=== PATIENT | female | born 1980 | race Caucasian/White ===

== ENCOUNTER 2019-12-20 05:50 | Inpatient (IN) | payer OTHER, BC ==
[2019-12-18 11:24] LABS: BASOPHILS ABSOLUTE AUTO 0.06 K/mm3 (0.00-0.23); BASOPHILS PERCENT AUTO 1 % (0-2); EOSINOPHILS ABSOLUTE AUTO 0.29 K/mm3 (0.00-0.68); EOSINOPHILS PERCENT AUTO 3 % (0-6); Hematocrit 42.4 % (33.0-51.0); Hemoglobin 13.8 g/dL (11.5-16.0); IMMATURE GRAN ABSOLUTE AUTO 0.02 K/mm3 (0.00-0.10); IMMATURE GRAN PERCENT AUTO 0 % (0-1); LYMPHOCYTES ABSOLUTE AUTO 3.03 K/mm3 (0.84-5.20); LYMPHOCYTES PERCENT AUTO 30 % (21-46); MONOCYTES ABSOLUTE AUTO 0.63 K/mm3 (0.16-1.47); MONOCYTES PERCENT AUTO 6 % (4-13); Mean Corpuscular HGB 27.9 pg (26.0-34.0); Mean Corpuscular HGB Conc 32.5 g/dL (31.5-36.5); Mean Corpuscular Volume 86 fL (80-100); Mean Platelet Volume 11.7 fL (9.1-12.4); NEUTROPHILS ABSOLUTE AUTO 6.08 K/mm3 (1.96-9.15); NEUTROPHILS PERCENT AUTO 60 % (41-73); Platelet Count 287 K/mm3 (150-400); RDW Coefficient Variation 12.6 % (11.7-14.2); RDW Standard Deviation 39.1 fL (35.1-46.3); Red Blood Cell Count 4.94 M/mm3 (3.80-5.20); White Blood Cell Count 10.11 K/mm3 (4.00-11.30)
[2019-12-18 12:03] LABS: Anion Gap 4 mmol/L (6-16); Blood Urea Nitrogen 14 mg/dL (8-24); CO2, Blood 28 mmol/L (21-32); Calcium, Blood 8.8 mg/dL (8.5-10.1); Chloride, Blood 106 mmol/L (98-108); Creatinine, Blood 0.74 mg/dL (0.40-1.00); Glomerular Filtration Rate >60 (60-); Glucose, Blood 101 mg/dL (70-99); Potassium, Blood 3.8 mmol/L (3.5-5.5); Sodium, Blood 138 mmol/L (136-145)
[~2019-12-20] VITALS: Ht 165.1 cm; Wt 106.7 kg
[~2019-12-20 05:50] MED LIST: AMITRIPTYLINE PO; BENZ100A PO; Bacid1 EACH PO; CEFD300 PO; CETI10 PO; CIPR250 PO; CITA20; CYCL10 PO; Ceftriaxone2 G1; DICL75ER PO; DIPH50 PO; DULO60 PO; ESOM20; FLUC100 PO; HYDACE10B PO; IBUP600 PO; IBUP800 PO; LANS15EC; ONDA8ODT MM; OVRAL; Omeprazole20 M1 PO; Oxycodone HCl5 M1 PO; PRED10 PO; PROM25 PO; Percocet 5-3251 EACH PO; RANI150 PO; RXLEVESTKI PO; RXPROACE PO; SUCR1 PO; Sudogest30 MG PO; TEGA6; TOPI25 PO; Verotin-Gr Cap1 EACH PO; Zofran8 MG PO; [UNRECOGNIZED DRUG - OTHER]
[2019-12-20] MEDS ORDERED: OMEP20ER PO (06:27)
[2019-12-20] MEDS ORDERED: CENTRUM SILVER1 EAC2 PO (06:28)
[2019-12-20] MEDS ORDERED: ASCO500 PO (06:28)
[2019-12-20] MEDS ORDERED: Vitamin B Comple1 EA PO (06:29)
--- NOTE | 2019-12-20 07:09 | NUR ---
Ambulatory in Day Surgery History, Chart, Medications and Allergies reviewed before start of procedure.Patient confirms NPO status and agrees with scheduled surgery. Patient reports completing Chlorhexadine shower X2 prior to admission to hospital.Surgical site prepped with 2% Chlorhexidine cloth wipe. Lungs clear T/O to Auscultation.
[2019-12-20] MEDS ORDERED: LANS30EC PO (07:12)
[2019-12-20] MEDS ORDERED: BUPR100 PO (07:13)
[2019-12-21 05:29] LABS: BASOPHILS ABSOLUTE AUTO 0.06 K/mm3 (0.00-0.23); BASOPHILS PERCENT AUTO 0 % (0-2); EOSINOPHILS ABSOLUTE AUTO 0.22 K/mm3 (0.00-0.68); EOSINOPHILS PERCENT AUTO 2 % (0-6); Hemoglobin 12.6 g/dL (11.5-16.0); IMMATURE GRAN ABSOLUTE AUTO 0.06 K/mm3 (0.00-0.10); IMMATURE GRAN PERCENT AUTO 0 % (0-1); LYMPHOCYTES ABSOLUTE AUTO 3.29 K/mm3 (0.84-5.20); LYMPHOCYTES PERCENT AUTO 22 % (21-46); MONOCYTES ABSOLUTE AUTO 0.96 K/mm3 (0.16-1.47); MONOCYTES PERCENT AUTO 7 % (4-13); Mean Corpuscular HGB 28.3 pg (26.0-34.0); Mean Corpuscular HGB Conc 33.2 g/dL (31.5-36.5); Mean Corpuscular Volume 85 fL (80-100); Mean Platelet Volume 11.1 fL (9.1-12.4); NEUTROPHILS ABSOLUTE AUTO 10.17 K/mm3 (1.96-9.15); NEUTROPHILS PERCENT AUTO 69 % (41-73); Platelet Count 275 K/mm3 (150-400); RDW Coefficient Variation 12.6 % (11.7-14.2); Red Blood Cell Count 4.45 M/mm3 (3.80-5.20); White Blood Cell Count 14.76 K/mm3 (4.00-11.30)
--- NOTE | 2019-12-21 08:22 | NUR ---
PT LAYING IN BED, HASN'T TAKEN IN MUCH PO FLUIDS ALL NIGHT , IV STILL IN, STARTED IVF WITH ABX. WILL RUN IN AT 200 PER HOUR, ICE CHIPS AND WATER GIVEN, ENCOURGED TO DRINK. DISCUSSED AMBULATING Q2 HOURS, SHORT WALKS. WILL TRY IN 2 HOUR.FC OUT AT 0500, HASN'T VOIDED YET. PT TAKING OWN ESTROGEN. C/O SOME GAS PAIN, SHOULDER PAIN, DISCUSSED AMBUALTING WILL HELP.
--- NOTE | 2019-12-21 09:00 | NUR ---
AMBULATING IN HALLS, WAS ABLE TO VOID. PLANNING TO DC HOME THIS LATER MORNING.
[2019-12-21] MEDS ORDERED: Percocet 5-3251 EACH PO (09:47)
[2019-12-21] MEDS ORDERED: IBUP800 PO (09:48)
[2019-12-21] MEDS ORDERED: PROM25 PO (09:49)
--- NOTE | 2019-12-21 11:30 | NUR ---
ALL DC TEACHING DONE, ALL QUSTIONS ANSWERED. PT'S MOM HERE TO TAKE PT HOME, AMBULATED OUT.
== END 2019-12-21 11:25 | disposition home or self-care (01) | DRG 743 ==
LOC: ORSCMMR 05:50 → ORD 07:30 → ORSCMMR 11:33 → BC 11:33 → ORD 01-03 07:30
PROVIDERS: ADMIT Obstetrics & Gynecology
PROC: 0UT24ZZ Resection of Bilateral Ovaries, Percutaneous Endoscopic Approach (ICD-10-PCS; 2019-12-20)
PROC: 8E0W4CZ Robotic Assisted Procedure of Trunk Region, Percutaneous Endoscopic Approach (ICD-10-PCS; 2019-12-20)
PROC: 0UT94ZZ Resection of Uterus, Percutaneous Endoscopic Approach (ICD-10-PCS; principal; 2019-12-20 07:30)
DX: N92.0 Excessive and frequent menstruation with regular cycle (principal); N94.6 Dysmenorrhea, unspecified; R10.2 Pelvic and perineal pain; G89.29 Other chronic pain; N80.9 Endometriosis, unspecified; E66.9 Obesity, unspecified; Z68.39 Body mass index [BMI] 39.0-39.9, adult; K21.9 Gastro-esophageal reflux disease without esophagitis; F32.9 Major depressive disorder, single episode, unspecified
CPT/HCPCS: 36415; 80048; 85025; 86850; 86900; 86901; 88307; J0690; J1100; J1885; J2250; J2405; J2704; J3010; J7120; Q0163

== ENCOUNTER 2020-12-19 17:02 | Emergency (ER) | payer OTHER ==
[~2020-12-19] VITALS: Ht 170.2 cm; Wt 105.2 kg
[~2020-12-19 17:02] MED LIST changes: +ASCO500 PO; +BUPR100 PO; +CENTRUM SILVER1 EAC2 PO; +LANS30EC PO; +OMEP20ER PO; +Vitamin B Comple1 EA PO
[2020-12-19 17:51] LABS: BASOPHILS ABSOLUTE AUTO 0.09 K/mm3 (0.00-0.23); BASOPHILS PERCENT AUTO 1 % (0-2); EOSINOPHILS ABSOLUTE AUTO 0.12 K/mm3 (0.00-0.68); EOSINOPHILS PERCENT AUTO 1 % (0-6); Hematocrit 41.7 % (33.0-51.0); Hemoglobin 14.3 g/dL (11.5-16.0); IMMATURE GRAN ABSOLUTE AUTO 0.04 K/mm3 (0.00-0.10); IMMATURE GRAN PERCENT AUTO 0 % (0-1); LYMPHOCYTES ABSOLUTE AUTO 4.01 K/mm3 (0.84-5.20); LYMPHOCYTES PERCENT AUTO 36 % (21-46); MONOCYTES ABSOLUTE AUTO 0.78 K/mm3 (0.16-1.47); MONOCYTES PERCENT AUTO 7 % (4-13); Mean Corpuscular HGB Conc 34.3 g/dL (31.5-36.5); Mean Corpuscular Volume 82 fL (80-100); Mean Platelet Volume 11.3 fL (9.1-12.4); NEUTROPHILS ABSOLUTE AUTO 6.16 K/mm3 (1.96-9.15); NEUTROPHILS PERCENT AUTO 55 % (41-73); Platelet Count 343 K/mm3 (150-400); RDW Coefficient Variation 12.3 % (11.7-14.2); RDW Standard Deviation 36.9 fL (35.1-46.3)
[2020-12-19 18:13] LABS: Alanine Aminotransfer (ALT/SGP 36 U/L (12-78); Albumin, Blood 3.7 g/dL (3.4-5.0); Alk Phos 86 U/L (50-136); Anion Gap 3 mmol/L (6-16); Aspartate Aminotrans (AST/SGOT 15 U/L (12-37); Bilirubin, Total 0.3 mg/dL (0.1-1.0); Blood Urea Nitrogen 13 mg/dL (8-24); CO2, Blood 28 mmol/L (21-32); Calcium, Blood 9.3 mg/dL (8.5-10.1); Chloride, Blood 108 mmol/L (98-108); Creatinine, Blood 0.72 mg/dL (0.40-1.00); Globulin, Blood 3.8 g/dL (2.2-4.0); Glomerular Filtration Rate >60 (60-); Glucose, Blood 91 mg/dL (70-99); Potassium, Blood 3.9 mmol/L (3.5-5.5); Sodium, Blood 139 mmol/L (136-145); Total Protein, Blood 7.5 g/dL (6.4-8.2); Troponin I <0.015 ng/mL (0.000-0.040)
== END 2020-12-19 21:07 | disposition home or self-care (01) ==
LOC: ER 17:02
PROVIDERS: Physician Assistant
DX: R07.89 Other chest pain (principal); Z91.040 Latex allergy status; Z91.09 Other allergy status, other than to drugs and biological substances; Z88.2 Allergy status to sulfonamides; Z88.8 Allergy status to other drugs, medicaments and biological substances; Z79.899 Other long term (current) drug therapy
CPT/HCPCS: 36415; 71046; 80053; 84484; 85025; 93005; 93010; 99285-25

== ENCOUNTER → 2021-01-14 | Outpatient (CLI) | payer OTHER | END | disposition home or self-care (01) | LOC: LAB 12:31 → LAB SHORT 12:31 | DX: R10.13 Epigastric pain (principal) | CPT/HCPCS: 87338 ==

== ENCOUNTER → 2022-09-15 | Outpatient (CLI) | payer OTHER ==
[2022-09-15 01:46] LABS: BASOPHILS ABSOLUTE AUTO 0.05 K/mm3 (0.00-0.23); BASOPHILS PERCENT AUTO 0 % (0-2); EOSINOPHILS ABSOLUTE AUTO 0.18 K/mm3 (0.00-0.68); EOSINOPHILS PERCENT AUTO 1 % (0-6); Hematocrit 40.1 % (33.0-51.0); Hemoglobin 13.6 g/dL (11.5-16.0); IMMATURE GRAN ABSOLUTE AUTO 0.05 K/mm3 (0.00-0.10); IMMATURE GRAN PERCENT AUTO 0 % (0-1); LYMPHOCYTES ABSOLUTE AUTO 4.19 K/mm3 (0.84-5.20); LYMPHOCYTES PERCENT AUTO 31 % (21-46); MONOCYTES ABSOLUTE AUTO 0.85 K/mm3 (0.16-1.47); MONOCYTES PERCENT AUTO 6 % (4-13); Mean Corpuscular HGB 27.8 pg (26.0-34.0); Mean Corpuscular HGB Conc 33.9 g/dL (31.5-36.5); Mean Corpuscular Volume 82 fL (80-100); Mean Platelet Volume 11.4 fL (9.1-12.4); NEUTROPHILS ABSOLUTE AUTO 8.13 K/mm3 (1.96-9.15); NEUTROPHILS PERCENT AUTO 60 % (41-73); Platelet Count 308 K/mm3 (150-400); RDW Coefficient Variation 13.1 % (11.7-14.2); RDW Standard Deviation 38.8 fL (35.1-46.3); White Blood Cell Count 13.45 K/mm3 (4.00-11.30)
[2022-09-15 02:26] LABS: Albumin, Blood 3.8 g/dL (3.4-5.0); Albumin/Globulin Ratio 1.1 (0.8-1.8); Bilirubin, Total 0.5 mg/dL (0.1-1.0); Bun/Creatinine Ratio 23.8 (12.0-20.0); Calcium, Blood 8.9 mg/dL (8.5-10.1); Creatinine, Blood 0.72 mg/dL (0.40-1.00); Globulin, Blood 3.5 g/dL (2.2-4.0); Percent Saturation 17.7 % (15.0-50.0); Potassium, Blood 3.7 mmol/L (3.5-5.5); Thyroid Stimulating Hormone 3.46 uIU/mL (0.360-4.800); Total Protein, Blood 7.3 g/dL (6.4-8.2)
== END | disposition home or self-care (01) ==
LOC: LAB SHORT 01:38
PROVIDERS: Nurse Practitioner Family
DX: R51.9 Headache, unspecified (principal); R53.83 Other fatigue
CPT/HCPCS: 80053; 82728; 83540; 83550; 84443; 85025

== ENCOUNTER 2023-06-20 22:36 | Emergency (ER) | payer BC ==
[~2023-06-20] VITALS: Ht 165.1 cm; Wt 70.3 kg
[2023-06-21] MEDS ORDERED: ONDA4ODT MM (00:31)
[2023-06-21 00:40] VITALS: BP 146/70
== END 2023-06-21 00:39 | disposition home or self-care (01) ==
LOC: ER 22:36
DX: J11.1 Influenza due to unidentified influenza virus with other respiratory manifestations (principal); Z88.2 Allergy status to sulfonamides; Z91.09 Other allergy status, other than to drugs and biological substances; Z88.8 Allergy status to other drugs, medicaments and biological substances; Z79.899 Other long term (current) drug therapy
CPT/HCPCS: 96361; 96374; 99284-25; J1885; J7030

== ENCOUNTER → 2023-06-22 | Outpatient (CLI) | payer BC ==
[~2023-06-22] MED LIST changes: +ONDA4ODT MM
[2023-06-22 11:22] LABS: BASOPHILS ABSOLUTE AUTO 0.04 K/mm3 (0.00-0.23); BASOPHILS PERCENT AUTO 0 % (0-2); EOSINOPHILS PERCENT AUTO 0 % (0-6); IMMATURE GRAN ABSOLUTE AUTO 0.03 K/mm3 (0.00-0.10); IMMATURE GRAN PERCENT AUTO 0 % (0-1); LYMPHOCYTES ABSOLUTE AUTO 1.46 K/mm3 (0.84-5.20); LYMPHOCYTES PERCENT AUTO 16 % (21-46); MONOCYTES ABSOLUTE AUTO 0.55 K/mm3 (0.16-1.47); MONOCYTES PERCENT AUTO 6 % (4-13); Mean Corpuscular HGB 27.7 pg (26.0-34.0); Mean Corpuscular HGB Conc 33.3 g/dL (31.5-36.5); Mean Corpuscular Volume 83 fL (80-100); Mean Platelet Volume 11.4 fL (9.1-12.4); NEUTROPHILS ABSOLUTE AUTO 7.16 K/mm3 (1.96-9.15); NEUTROPHILS PERCENT AUTO 78 % (41-73); Platelet Count 221 K/mm3 (150-400); RDW Coefficient Variation 12.5 % (11.7-14.2); RDW Standard Deviation 37.7 fL (35.1-46.3); Red Blood Cell Count 5.06 M/mm3 (3.80-5.20); White Blood Cell Count 9.24 K/mm3 (4.00-11.30)
[2023-06-22 11:35] LABS: Albumin, Blood 3.4 g/dL (3.4-5.0); Albumin/Globulin Ratio 0.9 (0.8-1.8); Bilirubin, Total 0.9 mg/dL (0.1-1.0); Bun/Creatinine Ratio 15.1 (12.0-20.0); Calcium, Blood 8.9 mg/dL (8.5-10.1); Creatinine, Blood 1.06 mg/dL (0.40-1.00); Globulin, Blood 3.9 g/dL (2.2-4.0); Potassium, Blood 3.5 mmol/L (3.5-5.5); Total Protein, Blood 7.3 g/dL (6.4-8.2)
== END | disposition home or self-care (01) ==
LOC: LAB SHORT 11:16 → LAB 11:16
PROVIDERS: Physician Assistant
DX: R11.2 Nausea with vomiting, unspecified (principal)
CPT/HCPCS: 80053; 85025

== ENCOUNTER 2024-03-08 18:24 | Inpatient (IN) | payer BC ==
[~2024-03-08] VITALS: Ht 172.7 cm; Wt 108.2 kg
[2024-03-08] MEDS ORDERED: DiphenhydrAMINE HCl 50 MG/ML 1ML Vial IV ONE ×3 (18:50→21:30)
[2024-03-08] MEDS ORDERED: Morphine Sulfate 4 MG/1 ML Injection IV ONE (18:50)
[2024-03-08] MEDS ORDERED: Ondansetron HCl 2 MG / ML 2ML Vial IV ONE (18:55)
[2024-03-08] MEDS ORDERED: NS 1,000 ML IV SCH (18:55)
[2024-03-08 18:59] LABS: Hematocrit 41.5 % (33.0-51.0); Hemoglobin 14.3 g/dL (11.5-16.0); Mean Corpuscular HGB 28.1 pg (26.0-34.0); Mean Corpuscular HGB Conc 34.5 g/dL (31.5-36.5); Mean Corpuscular Volume 82 fL (80-100); Mean Platelet Volume 11.4 fL (9.1-12.4); Platelet Count 364 K/mm3 (150-400); RDW Coefficient Variation 12.5 % (11.7-14.2); RDW Standard Deviation 37.6 fL (35.1-46.3); Red Blood Cell Count 5.09 M/mm3 (3.80-5.20); White Blood Cell Count 13.68 K/mm3 (4.00-11.30)
[2024-03-08] MEDS ORDERED: Famotidine 10 MG/ML 2ML Vial IV ONE (19:00)
[2024-03-08] MEDS ORDERED: EpiNEPhrine 1 MG/1 ML 1ML Vial IM ONE ×2 (19:00→20:15)
[2024-03-08] MEDS ORDERED: EPINEPhrine HCl 1 MG/ML 1ML Amp IM ONE ×2 (19:00→20:15)
[2024-03-08] MEDS ORDERED: MethylPREDNISolone Sod Succ 125 MG Vial IV ONE (19:00)
[2024-03-08 19:12] LABS: Alanine Aminotransfer (ALT/SGP 46 U/L (12-78); Albumin, Blood 3.8 g/dL (3.4-5.0); Albumin/Globulin Ratio 1.1 (0.8-1.8); Alk Phos 95 U/L (50-136); Anion Gap 11 mmol/L (3-11); Aspartate Aminotrans (AST/SGOT 50 U/L (12-37); Bilirubin, Total 0.5 mg/dL (0.1-1.0); Blood Urea Nitrogen 14 mg/dL (8-24); Bun/Creatinine Ratio 18.6 (12.0-20.0); CO2, Blood 27 mmol/L (21-32); Calcium, Blood 9.5 mg/dL (8.5-10.1); Chloride, Blood 106 mmol/L (98-108); Creatinine, Blood 0.75 mg/dL (0.40-1.00); Globulin, Blood 3.5 g/dL (2.2-4.0); Glomerular Filtration Rate 103 (60-); Glucose, Blood 98 mg/dL (70-99); Potassium, Blood 3.6 mmol/L (3.5-5.5); Sodium, Blood 140 mmol/L (136-145); Total Protein, Blood 7.3 g/dL (6.4-8.2)
[2024-03-08 19:52] LABS: BASOPHILS PERCENT MAN 0 % (0-2); EOSINOPHILS PERCENT MAN 0 % (0-6); LYMPHOCYTES % ATYPICAL MANUAL 1 % (0-0); LYMPHOCYTES ABSOLUTE MAN 7.66 K/mm3 (0.84-5.20); LYMPHOCYTES PERCENT MAN 55 % (21-46); MONOCYTES ABSOLUTE MAN 0.68 K/mm3 (0.16-1.47); MONOCYTES PERCENT MAN 5 % (4-13); NEUTROPHILS ABSOLUTE MAN 5.33 K/mm3 (1.96-9.15); SEG NEUTROPHILS PERCENT MAN 39 % (41-73); TOTAL CELLS COUNTED 100
[2024-03-08 20:48] LABS: D-Dimer, Quantitative 4.45 mg/L FEU (0.00-0.52)
[2024-03-08] MEDS ORDERED: DiphenhydrAMINE HCl 50 MG/ML 1ML Vial ONE (21:24)
[2024-03-08] MEDS ORDERED: FentaNYL Citrate 50 MCG/ML 2 ML Injection IV ONE (23:20)
[2024-03-08] MEDS ORDERED: FentaNYL Citrate 50 MCG/ML 2 ML Injection IV PRN (23:45)
[2024-03-09] MEDS ORDERED: Ondansetron HCl 2 MG / ML 2ML Vial IV PRN (00:05)
[2024-03-09] MEDS ORDERED: FLU VACC TS2024-25(6MOS UP)/PF 45 MCG/0.5 ML SYRINGE IM SCH (00:05)
[2024-03-09] MEDS ORDERED: NS 1,000 ML IV SCH (00:05)
[2024-03-09 00:16] LABS: CHOL/HDL RATIO 3.6; Cholesterol 265 mg/dL (50-200); HDL Cholesterol 73 mg/dL (>39); LDL/HDL RATIO 2.1; Low Density Lipoprotein Chol 151 mg/dL (0-110); Triglycerides 207 mg/dL (30-160); Very Low Density Lipoprot Chol 41 mg/dL (6-32)
[2024-03-09 00:23] LABS: International Normalized Ratio 0.95; Prothrombin Time Results 10.2 Sec (9.7-11.5)
[2024-03-09 05:50] LABS: BASOPHILS ABSOLUTE AUTO 0.01 K/mm3 (0.00-0.23); BASOPHILS PERCENT AUTO 0 % (0-2); EOSINOPHILS PERCENT AUTO 0 % (0-6); Hematocrit 42.5 % (33.0-51.0); Hemoglobin 14.2 g/dL (11.5-16.0); IMMATURE GRAN ABSOLUTE AUTO 0.05 K/mm3 (0.00-0.10); IMMATURE GRAN PERCENT AUTO 0 % (0-1); LYMPHOCYTES ABSOLUTE AUTO 0.97 K/mm3 (0.84-5.20); LYMPHOCYTES PERCENT AUTO 8 % (21-46); MONOCYTES ABSOLUTE AUTO 0.09 K/mm3 (0.16-1.47); MONOCYTES PERCENT AUTO 1 % (4-13); Mean Corpuscular HGB 27.8 pg (26.0-34.0); Mean Corpuscular HGB Conc 33.4 g/dL (31.5-36.5); Mean Corpuscular Volume 83 fL (80-100); Mean Platelet Volume 11.8 fL (9.1-12.4); NEUTROPHILS ABSOLUTE AUTO 10.92 K/mm3 (1.96-9.15); NEUTROPHILS PERCENT AUTO 91 % (41-73); Platelet Count 328 K/mm3 (150-400); RDW Coefficient Variation 12.8 % (11.7-14.2); RDW Standard Deviation 38.5 fL (35.1-46.3); Red Blood Cell Count 5.11 M/mm3 (3.80-5.20); White Blood Cell Count 12.04 K/mm3 (4.00-11.30)
[2024-03-09 06:15] LABS: Albumin, Blood 3.5 g/dL (3.4-5.0); Bilirubin, Total 0.4 mg/dL (0.1-1.0); Bun/Creatinine Ratio 23.4 (12.0-20.0); Calcium, Blood 8.6 mg/dL (8.5-10.1); Creatinine, Blood 0.69 mg/dL (0.40-1.00); Globulin, Blood 3.5 g/dL (2.2-4.0); Potassium, Blood 4.1 mmol/L (3.5-5.5)
[2024-03-09] MEDS ORDERED: Enoxaparin 40 MG/0.4 ML SYR SC SCH (09:00)
[2024-03-09] MEDS ORDERED: Ketorolac Tromethamine 15mg Vial IV PRN (10:45)
[2024-03-09] MEDS ORDERED: Morphine Sulfate 10 MG/ML 1MLSYR IV PRN (10:50)
[2024-03-09] MEDS ORDERED: DiphenhydrAMINE HCl 50 MG/ML 1ML Vial IV PRN ×2 (12:00→22:25)
[2024-03-09] MEDS ORDERED: ESCI10 PO (12:51)
[2024-03-09] MEDS ORDERED: FAMO40 PO (12:51)
[2024-03-09 12:53] VITALS: BP 127/77
[2024-03-09] MEDS ORDERED: Lactated Ringer's 1,000 ML IV SCH (15:00)
[2024-03-09] MEDS ORDERED: Famotidine 10 MG/ML 2ML Vial IV ONE (15:25)
[2024-03-09] MEDS ORDERED: MethylPREDNISolone Sod Succ 125 MG Vial IV ONE (16:35)
[2024-03-09] MEDS ORDERED: LORazepam 2 MG/ML 1ML Injection IV PRN (16:35)
[2024-03-09 17:16] VITALS: BP 130/78
--- NOTE | 2024-03-09 19:42 | NUR ---
HIFT SUMMARY- PT ADMITTED THROUGH THE ER AFTER HAVING AN ANIPHYLACTIC REACTION TO SOMETHING (PRESUMED SHE ATE SOMETHING). HIVES WERE RESOLVED WELL ITCHING UPON ARRIVAL TO MED FLOOR. PAIN APPEARED WELL MANAGED. CALLED DR CHRISTIANSON ABOUT THE PT SHE BAGAN ITCHING AGAIN LATER IN THE SHIFT. PT DESCRIBED A BURNING IN HER THROAT WHEN SHE RECIEVED IV BENADRYL EARLIER. DR CHRISTIANSON DC'D BENADRYL AND ORDERED A OT DOSE OF PEPCID. THIS HAD NO EFFECT ON THE PT ITCHING. CALLED DR CHRISTIANSON IT HAD NO EFFECT AND HE ORDERED A OT DOSE OF 60MG IV STEROIDS. PT STATED AFTER THAT HER ITCHING WAS BETTER, BUT NOT GONE. MEDICATED FOR PAIN WITH 4MG IV MORPHINE WITH GOOD EFFECT. PT HAS PRN ATIVAN IF NEEDED TO HELP WITH THE PAIN. IV TORADOL SEEMED TO HELP A LITTLE TO TAKE THE SHARPNESS OUT OF THE PAIN (PER PT REPORT). BEDSIDE REPORT COMPLETED ITH NIGHT RN NO S&S OF DISTRESS NOTED AT THE TIME OF REPORT. PT REPORTS PAIN WELL MANAGED AT THE TIME OF REPORT. ONCOMING NIGHT RN HAD THIS RN ASK THE PT IF SHE APPROVED OF HER BEING THE PT RN THEY WENT TO SCHOOL TOGETHER; PT AGREED AND WAS WILLING TO HAVE ANGELITO BURT HER RN FOR THE NIGHT.
[2024-03-09 19:49] VITALS: BP 133/82
[2024-03-09] MEDS ORDERED: HYDROmorphone HCl/Pf 1MG SYR IV PRN (21:05)
[2024-03-09] MEDS ORDERED: HYDROmorphone HCl/Pf 1MG SYR IV ONE (21:05)
[2024-03-10 03:41] VITALS: BP 112/55
[2024-03-10 05:30] LABS: CHOL/HDL RATIO 3.3; Cholesterol 239 mg/dL (50-200); HDL Cholesterol 73 mg/dL (>39); Low Density Lipoprotein Chol 145 mg/dL (0-110); Triglycerides 107 mg/dL (30-160); Very Low Density Lipoprot Chol 21 mg/dL (6-32)
[2024-03-10] MEDS ORDERED: Pantoprazole Sodium 40 MG Injection IV SCH (06:00)
--- NOTE | 2024-03-10 07:45 | NUR ---
SHIFT SUMMARY PT A&Ox4 AND PLEASANT. PT WITH UPPER GASTRIC PAIN D/T ACUTE PANCREATITIS. PT REPORTED LITTLE PAIN RELIEF AT START OF SHIFT. HOSPITALIST CALLED AND NEW ORDERS GIVEN. PT MEDICATED PER EMAR WITH GOOD EFFECT. PT ALSO REPORTED INTERMITENT ITCHING SINCE ARRIVING. BENADRYL GIVEN PER EMAR. PT ON 2L OF OXYGEN D/T DESATING IN ED, BASLINE IS RA. CONTINIOUS BIOX PLACED. NO EVENTS ON TELE. PT DENIED N/V/D. NPO AT THIS TIME. VSS. BED IN LOWEST POSITION AND CALL LIGHT IN REACH.
[2024-03-10 08:03] VITALS: BP 146/84
[2024-03-10] MEDS ORDERED: Citalopram Hydrobromide 20 MG Tab PO SCH (09:00)
[2024-03-10] MEDS ORDERED: Loratadine 10 MG Tab PO SCH (10:00)
[2024-03-10 15:01] VITALS: BP 128/74
--- NOTE | 2024-03-10 17:21 | NUR ---
SHIFT NOTE: PT A/OX4 ABLE TO MAKE NEEDS KNOWN. DIET IS TO BE ADVANCED TOLERATED, PT TRIED ICE CHIPS WITH INCREASED PAIN, RETURNED TO NPO. SHE HAS BEEN MEDICATED FOR PAIN PER EMAR. WILL CONTINUE TO MONITOR AND REPORT TO ONCOMING RN
[2024-03-10 19:44] VITALS: BP 135/80
[2024-03-11] MEDS ORDERED: NS 1,000 ML IV SCH (00:55)
[2024-03-11 03:06] VITALS: BP 121/69
[2024-03-11 07:32] VITALS: BP 134/80
--- NOTE | 2024-03-11 07:39 | NUR ---
SHIFT SUMMARY NOC. PT ADMIT FOR ACUTE PANCREATITIS. PT UNABLE TO TOLERATE ICE CHIPS WITHOUT INCREASE IN PAIN. URINE IS DARK. NEW ORDERS RECEIVED FOR BAG OF NS X1. PT MEDICATED FOR PAIN WITH DILAUDID 0.5MG, O2 PLACED VIA N/C 0.5L FOR DESAT. PT'S TELEMETRY IS ACTIVE IN SINUS BRADYCARDIA, NO REPORTED EVENTS. A/OX4, SBA FOR CORD MANAGEMENT TO INDEPENDENT. PT MEDICATED WITH BENADRYL X1 FOR ITCHING. BED IN LOWEST POSITION, CALL LIGHT IN REACH.
[2024-03-11 15:26] VITALS: BP 135/79
--- NOTE | 2024-03-11 19:29 | NUR ---
END OF SHIFT SUMMARY: A&Ox4. PLEASANT AND COOPERATIVE WITH CARE. CALLS APPROPRIATELY AND IS ABLE TO ADVOCATE NEEDS EFFECTIVELY. AMBULATES INDEPENDENTLY WITHIN THE ROOM. CONTINENT OF BOWEL AND BLADDER. REPORTS URINE IS DARK. NS x1. ADVANCE DIET TOLERATED TO CLEAR LIQUIDS, TOLERATING SO FAR. MEDICATED T/O SHIFT WITH PRN TORADOL AND PRN HYDROMORPHONE 0.5MG. TELE SINUS. BED IN LOWEST POSITION. CALL LIGHT WITHIN REACH. ALL NEEDS MET. REPORT TO ONCOMING NURSE.
[2024-03-11 19:54] VITALS: BP 138/86
[2024-03-12 04:29] VITALS: BP 138/82
[2024-03-12] MEDS ORDERED: Acetamin/Butalbital/Caffeine Tab PO PRN (04:40)
[2024-03-12 05:01] LABS: Bun/Creatinine Ratio 20.6 (12.0-20.0); Calcium, Blood 8.4 mg/dL (8.5-10.1); Creatinine, Blood 0.78 mg/dL (0.40-1.00); Potassium, Blood 3.9 mmol/L (3.5-5.5)
--- NOTE | 2024-03-12 06:50 | NUR ---
SHIFT SUMMARY PT IS A&OX4, PLEASANT AND APPRECIATIVE OF CARES. VSS ON RA. PER TELEMETRY PT IS SR-SB 57-69 BPM. C/O PAIN IN HER ABD AND A WINKLER, MEDICATED WITH PRN 0.5 MG IV DILAUDID AND PO FIORICET. NO C/O NAUSEA THIS SHIFT. PT IS UP AD SHIRIN INDEPENDENT IN ROOM/BR. NO BM THIS SHIFT. TOLERATING CLEAR LIQUIDS. BED IN LOWEST POSITION, CALL LIGHT WITHIN REACH.
[2024-03-12 07:18] VITALS: BP 140/89
[2024-03-12] MEDS ORDERED: NS 1,000 ML IV SCH (10:00)
[2024-03-12 10:09] LABS: Albumin/Globulin Ratio 1.1 (0.8-1.8); Bilirubin, Direct 0.3 mg/dL (0.0-0.3); Bilirubin, Indirect 0.9 mg/dL (0.1-0.7); Bilirubin, Total 1.2 mg/dL (0.1-1.0); Globulin, Blood 2.7 g/dL (2.2-4.0); Total Protein, Blood 5.7 g/dL (6.4-8.2)
[2024-03-12 15:29] VITALS: BP 154/95
[2024-03-12] MEDS ORDERED: Acetaminophen 325 MG TABLET PO PRN (17:15)
[2024-03-12] MEDS ORDERED: OxyCODONE HCL 5 MG TAB PO PRN (17:15)
--- NOTE | 2024-03-12 19:51 | NUR ---
SHIFT SUMMARY- PT SPOKE TO DR CHRISTIANSON ABOUT HER URINE BEING VERY CONCENTRATED AND FEELING DEHYDRATED, IVF RESUMED. PT HAS HAD A TERRIBLE HEADACHE THAT IS ONLY WORSENED BY THE DILAUDID. SPOKE TO DR CHRISTIANSON AND RECIEVED ORDER FOR TYLENOL FOR HEADACHE AND OXY FOR THE PAIN. PT DIET WAS ADVANCED TO A LOW FAT DIET, PT SEEMS TO TOLLERATE PO INTAKE WELL IF IT IS NOT SUGARY, AND SHE IS AWARE SHE NEEDS TO AVOID FAT. SHE TOLLERATED A FULL CUP OF BROTH EARLIER TODAY WITH NO ISSUE, SHE HAD A CORNBREAD MUFFIN WITH NO BUTTER, PRIOR TO THE OXY. SHE STATES HER PAIN IS UNCHANGED 30 MINUTES LATER, DENIES NAUSEA, SHE STATES THE HEADACHE IS BETTER 4/10. PT IN BED, CALL LIGHT IN REACH NO S&S OF DISTRESS NOTED.
[2024-03-12 20:29] VITALS: BP 128/87
[2024-03-13 02:07] VITALS: BP 133/86
--- NOTE | 2024-03-13 05:09 | NUR ---
SHIFT SUMMARY PT IS A&OX4, PLEASANT AND APPRECIATIVE OF CARES. VSS ON RA, BOARD WINDER ON. PER TELEMETRY PT IS SR @ 64 BPM. C/O PAIN IN HER ABD AND A WINKLER, MEDICATED WITH PRN 10 MG OXYCODONE. PT IS ANXIOUS AND TEARFUL AT BEDTIME, SHE WANTS TO FEEL BETTER AND GET TO GO HOME. MEDICATED HER WITH 0.5 MG IV ATIVAN, PT SAID SHE GOT SOME GOOD, MUCH NEEDED SLEEP. NO C/O NAUSEA THIS SHIFT. TOLERATING A REG., LOW FAT DIET. PT IS UP AD SHIRIN INDEPENDENT IN ROOM/BR. NO BM THIS SHIFT. BED IN LOWEST POSITION, CALL LIGHT WITHIN REACH.
[2024-03-13 07:41] VITALS: BP 132/84
[2024-03-13 19:35] VITALS: BP 142/79
--- NOTE | 2024-03-13 20:34 | NUR ---
SHIFT SUMMARY- PT PAIN SEEMED TO BE WELL MANAGED EARLIER IN THE SHIFT, BUT SHE BEGAN REQUIRING THE PO PAIN MEDS MORE CLOSE TOGETHER THAN THEY WERE ALLOWED. THE 10MG DOSE WAS TOO MUCH (PER THE PT) SO SHE ONLY WANTED THE 5MG, HOWEVER 5MG WORE OFF IN 3.5 HOURS, SHE WAS MEDICATED AND THREE HOURS LATER WAS REQUIRING MORE. MEDICATED WITH TYLENOL, IT DID NOT HELP. NIGHT RN WILL GIVE OXY AND SOME FENTANYL IF NEEDED. PT HAD AN MRCP COMPLETED THIS EVENING. PT IN BED VISIBLY UNCOMFORTABLE AT THE TIME OF REPORT. SHE MAT NEED TO CUT BACK ON HER PO INTAKE TO GET HER PAIN UNDER CONTROL. MRCP RESULTS ARE IN MD HAS NOT DISCUSSED THEM WITH THE PT.
[2024-03-14 02:42] VITALS: BP 121/76
[2024-03-14 05:51] LABS: Hematocrit 37.8 % (33.0-51.0); Mean Corpuscular HGB 27.8 pg (26.0-34.0); Mean Corpuscular HGB Conc 34.4 g/dL (31.5-36.5); Mean Corpuscular Volume 81 fL (80-100); Platelet Count 271 K/mm3 (150-400); RDW Coefficient Variation 12.5 % (11.7-14.2); Red Blood Cell Count 4.68 M/mm3 (3.80-5.20); White Blood Cell Count 8.18 K/mm3 (4.00-11.30)
[2024-03-14 06:10] LABS: Bilirubin, Total 1.2 mg/dL (0.1-1.0); Calcium, Blood 8.9 mg/dL (8.5-10.1); Creatinine, Blood 0.72 mg/dL (0.40-1.00); Globulin, Blood 2.9 g/dL (2.2-4.0); Potassium, Blood 3.5 mmol/L (3.5-5.5); Total Protein, Blood 5.9 g/dL (6.4-8.2)
[2024-03-14 07:20] VITALS: BP 135/85
--- NOTE | 2024-03-14 07:54 | NUR ---
SHIFT SUMMARY PT IS A&OX4, PLEASANT AND APPRECIATIVE OF CARES. VSS ON RA, JEWELRY RACKER ON. PER TELEMETRY PT IS SB @ 58 BPM. C/O PAIN IN HER ABD AND A WINKLER, MEDICATED WITH PRN 5 MG OXYCODONE. PT'S PAIN AT SHIFT CHANGE LAST NIGHT WAS 8/10, MEDICATED WITH PRN 25 MCG IV FENTANYL. NO C/O NAUSEA THIS SHIFT. TOLERATING A REG., LOW FAT DIET. PT IS UP AD SHIRIN INDEPENDENT IN ROOM/BR. NO BM THIS SHIFT, BUT STATES SHE DOES GET DIARRHEA AFTER MEALS. BED IN LOWEST POSITION, CALL LIGHT WITHIN REACH.
[2024-03-14] MEDS ORDERED: NS 1,000 ML IV SCH (15:00)
--- NOTE | 2024-03-14 15:12 | NUR ---
PT REPORTS FEELING DEHYDRATED AND CONTINUES WITH POOR ORAL INTAKE. PHONE CALL TO PROVIDER TO REQUEST RESTARTING IV FLUIDS UNTIL ORAL INTAKE IMPROVES. PROVIDER TO PLACE ORDERS. PT UPDATED.
[2024-03-14 16:10] VITALS: BP 138/81
--- NOTE | 2024-03-14 16:14 | NUR ---
PT IS A/OX4, PLEASANT AND COOPERATIVE. THE PT IS UP IND IN HER ROOM. THE PT TODAY WAS MEDICATED FOR PAIN AND ANXIETY X1 AFTER BREAKFAST TODAY. SO FAR THE PT HAS TOLERATED LUNCH BY TAKEING SMALL AMOUNTS AT A TIME SLOWLY. THE PT DENIES ANY N/V. PT BREATHING EASILY ON RA. CALL LIGHT IN REACH. VISITOR AT THE BEDSIDE
[2024-03-14 20:09] VITALS: BP 149/85
[2024-03-15 04:43] VITALS: BP 135/83
[2024-03-15 06:02] LABS: Albumin, Blood 3.1 g/dL (3.4-5.0); Bilirubin, Total 0.7 mg/dL (0.1-1.0); Bun/Creatinine Ratio 8.5 (12.0-20.0); Creatinine, Blood 0.83 mg/dL (0.40-1.00); Potassium, Blood 3.7 mmol/L (3.5-5.5); Total Protein, Blood 6.1 g/dL (6.4-8.2)
--- NOTE | 2024-03-15 06:09 | NUR ---
SHIFT SUMMARY: PT IS ALERT AND ORIENTED. PT IS CALM AND COOPERATIVE WITH CARE. PT CALLS APPROPRIATELY. PT IS INDEPENDENT IN THE ROOM. PT REPORTS ABD PAIN ON ONE OCCASION, MEDICATED PER EMAR. PT DENIES NAUSEA, VOMITING, AND SOB. PT SLEPT MOST OF THE SHIFT WHEN NOT DISTURBED. POSSIBLE DC TODAY. NO ACUTE CHANGES OR COMPLICATIONS. BED IN LOW POSITION, CALL LIGHT WITHIN REACH. WILL REPORT TO DAY NURSE.
[2024-03-15 07:51] VITALS: BP 127/80
[2024-03-15 15:00] VITALS: BP 132/88
--- NOTE | 2024-03-15 18:12 | NUR ---
END OF SHIFT SUMMARY: A&Ox4. PLEASANT AND COOPERATIVE WITH CARE. CALLS APPROPRIATELY AND IS ABLE TO ADVOCATE NEEDS EFFECTIVELY. AMBULATES INDEPENDENTLY WITHIN ROOM; CONTINENT x2.MEDS WHOLE WITH FLUIDS. TELE NSR WITH SOME BRADIC EPISODES. PAIN CONTROLLED WITH PO MEDICATIONS TODAY. STILL HAVING SOME ANXIETY AROUND DCing AND NOT BEING ABLE TO CONTROL PAIN AT HOME. BED IN LOWEST POSITION. CALL LIGHT WITHIN REACH. ALL NEEDS MET. REPORT TO ONCOMING NURSE.
[2024-03-15 20:07] VITALS: BP 150/87
[2024-03-16 04:35] VITALS: BP 124/74
--- NOTE | 2024-03-16 05:37 | NUR ---
SHIFT SUMMARY PATIENT IS ALERT AND ORIENTED. PATIENT HAS HAD NO ACUTE EVENTS THIS SHIFT. VITAL SIGNS REVIEWED. PATIENT HAS REPORTED HEADACHES THIS SHIFT OFF AND ON. PATIENT HAS HAD MILD ABD PAIN THIS SHIFT. PATIENT IS EXCITED FOR A POTENTIAL DISCHARGE TODAY. PATIENT HAS HAD NO EVENTS ON TELE. PATIENT HAS HAD NO COMPLAINTS OS SOB, NAUSEA, OR VOMITTING THIS SHIFT. BED IN LOCKED AND LOWEST POSITION. CALL LIGHT IN PLACE. WILL MONITOR UNTIL SHIFT CHANGE.
[2024-03-16 06:01] LABS: Albumin, Blood 3.4 g/dL (3.4-5.0); Albumin/Globulin Ratio 1.1 (0.8-1.8); Bilirubin, Total 0.8 mg/dL (0.1-1.0); Bun/Creatinine Ratio 14.1 (12.0-20.0); Calcium, Blood 9.6 mg/dL (8.5-10.1); Creatinine, Blood 0.64 mg/dL (0.40-1.00); Globulin, Blood 3.2 g/dL (2.2-4.0); Potassium, Blood 3.8 mmol/L (3.5-5.5); Total Protein, Blood 6.6 g/dL (6.4-8.2)
[2024-03-16 08:04] VITALS: BP 132/74
[2024-03-16] MEDS ORDERED: LORA.5 PO (13:04)
[2024-03-16] MEDS ORDERED: OXAYDO5 M1 PO (13:05)
--- NOTE | 2024-03-16 13:35 | NUR ---
SHIFT/DISCHARGE SUMMARY: PATIENT A/OX4, PLEASANT AND COOPERATIVE c CARE. PATIENT DENIES CP/PRESSURE, SOB, N/V AND DIZZINESS. PATIENT HAS HAD NO EVENTS ON TELE, SB/SR HR IN THE MID 50'S TO MID 60'S BPM. PATIENT REPORTS PAIN/DISCOMFORT TO EPIGASTRIC HAS IMPROVED, OFFERED PAIN MEDS BUT DECLINED. PATIENT TOLERATING CURRENT DIET, CONTINENT OF BOWEL/BLADDER, AMBULATES TO BATHROOM INDEPENDENTLY T/O SHIFT. PATIENT RECEIVED SCHEDULED MEDS PER EMAR. VITAL SIGNS REVIEWED. PIV WAS DC'D BY DEBORAH DUMONT. PATIENT DISCHARGE HOME. DISCHARGE INSTRUCTIONS PACKET GIVEN TO PATIENT. EDUCATED PATIENT REGARDING ADMITTING DX'S OF ACUTE PANCREATITIS, S/S, TX, NEW RX, SELF CARE, DIET AND TO F/U c PCP. PATIENT VERBALIZED UNDERSTANDING AND NO FURTHER QUESTIONS. RX WAS FAXED TO PATIENT PREFERRED PHARMACY-[facility]. ALL PATIENT PERSONAL BELONGINGS WERE SENT HOME c THE PATIENT. PATIENT LEFT THE ROOM AT 1328 AND TRANSPORTED VIA WHEELCHAIR BY THIS ELECTRICAL SYSTEMS DESIGNER TO ER ENTRANCE.
[2024-03-17 03:11] LABS: TISSUE TRANSGLUTAMINASE AB,IGG <0.82 FLU (0.00-4.99)
[2024-03-17 14:49] LABS: IMMUNOGLOBULIN A 74 mg/dL (68-408)
== END 2024-03-16 13:29 | disposition home or self-care (01) | DRG 439 ==
LOC: ER 18:24 → MEDS 23:59 → ERHOLD 23:59 → MEDS 03-09 12:46
PROVIDERS: Internal Medicine; Student in an Organized Health Care Education/Training Program; ADMIT Internal Medicine
DX: K85.90 Acute pancreatitis without necrosis or infection, unspecified (principal); R65.10 Systemic inflammatory response syndrome (SIRS) of non-infectious origin without acute organ dysfunction; F32.A Depression, unspecified; K21.9 Gastro-esophageal reflux disease without esophagitis; Z90.710 Acquired absence of both cervix and uterus; Z90.49 Acquired absence of other specified parts of digestive tract; Z88.8 Allergy status to other drugs, medicaments and biological substances; Z88.2 Allergy status to sulfonamides; Z91.048 Other nonmedicinal substance allergy status; E78.5 Hyperlipidemia, unspecified
CPT/HCPCS: 36415; 71045; 71046; 71275; 74174; 74181; 80048; 80053; 80061; 80076; 82784; 83516; 83690; 83880; 84484; 85025; 85027; 85379; 85610; 86364; 93005; 93010; 94762; 96372-59; 96374-59; 96375-59; 96376-59; 99285-25; A9270; J0171; J1170; J1200; J1650; J1885; J2060; J2270; J2405; J2470; J2919; J3010; J7030; J7120; Q9967

== ENCOUNTER → 2024-12-30 | Outpatient (CLI) | payer BC ==
[~2024-12-30] MED LIST changes: +ESCI10 PO; +FAMO40 PO; +LORA.5 PO; +OXAYDO5 M1 PO
[2024-12-30 17:14] LABS: Ferritin, Serum 141.0 ng/mL (8-252); Magnesium, Blood 1.9 mg/dL (1.6-2.4); Phosphorus, Blood 3.0 mg/dL (2.5-4.9); Thyroid Stimulating Hormone 2.17 uIU/mL (0.360-4.800); Total Iron Binding Capacity 265.0 ug/dL (250-450)
== END ==
LOC: LAB SHORT 16:31 → LAB 16:31
PROVIDERS: Family Medicine
DX: G25.81 Restless legs syndrome (principal); Z87.19 Personal history of other diseases of the digestive system
CPT/HCPCS: 82728; 83540; 83550; 83690; 83735; 84100; 84443